=== PATIENT | male | born 1995 | race Caucasian/White ===

== ENCOUNTER 2023-06-25 21:25 | Emergency (ER) | payer BC ==
[2023-06-25] MEDS: Lactated Ringers 1,000 ML IV ONE ×2 (22:02→22:26)
[2023-06-25 22:11] LABS: BASOPHILS ABSOLUTE AUTO 0.1 K/mm3 (0.0-0.2); BASOPHILS PERCENT AUTO 0.7 % (0.0-1.0); EOSINOPHILS ABSOLUTE AUTO 0.2 K/mm3 (0.0-0.4); EOSINOPHILS PERCENT AUTO 2.8 % (0.0-6.0); HEMATOCRIT 45.1 % (42.0-52.0); HEMOGLOBIN 16.5 gm/dl (14.0-18.0); IMMATURE GRAN ABSOLUTE AUTO 0.02 K/mm3 (0.00-0.05); IMMATURE GRAN PERCENT AUTO 0.2 % (0.0-0.4); LYMPHOCYTES ABSOLUTE AUTO 3.3 K/mm3 (1.0-4.8); LYMPHOCYTES PERCENT AUTO 39.8 % (24.0-44.0); MEAN CORPUSCULAR HEMOGLOBIN 30.6 pg (28.0-32.0); MEAN CORPUSCULAR HGB CONC 36.6 g/dl (32.0-36.0); MEAN CORPUSCULAR VOLUME 83.5 fl (83.0-99.0); MEAN PLATELET VOLUME 12.5 fl (9.4-12.4); MONOCYTES ABSOLUTE AUTO 0.5 K/mm3 (0.0-0.8); MONOCYTES PERCENT AUTO 6.3 % (0.0-8.0); NEUTROPHILS ABSOLUTE AUTO 4.1 K/mm3 (1.8-7.7); NEUTROPHILS PERCENT AUTO 50.2 % (41.0-71.0); PLATELET COUNT,PLT 197 K/mm3 (150-400); WHITE BLOOD CELL COUNT,WBC 8.22 K/mm3 (3.9-11.3)
[2023-06-25 22:16] LABS: APPEARANCE,URINE CLEAR (Clear); BILIRUBIN,URINE NEGATIVE (Negative); COLOR,URINE LIGHT YELLOW (Yellow); GLUCOSE,URINE 2+ (Negative); KETONES,URINE NEGATIVE (Negative); LEUKOCYTE ESTERASE,URINE NEGATIVE (Negative); NITRITE,URINE NEGATIVE (Negative); OCCULT BLOOD,URINE NEGATIVE (Negative); PROTEIN,URINE NEGATIVE (Negative); UROBILINOGEN,URINE 0.2 (0.2-1.0)
[2023-06-25 22:22] LABS: BICARBONATE,VENOUS 23.9 meq/L (22-26); O2 SATURATION VENOUS 95.7; PCO2 VENOUS 31.2 mmHg (41-51)
[2023-06-25 22:33] LABS: A/G RATIO 0.8 (1-2); ALBUMIN 3.8 g/dl (3.4-5.0); ALKALINE PHOSPHATASE 112 U/L (46-116); ANION GAP 18.2 (5-15); BILIRUBIN TOTAL 0.7 mg/dL (0.2-1.0); BLOOD UREA NITROGEN,BUN 13 mg/dL (7-18); BUN/CREATININE RATIO 11.8 (14-18); CALCIUM 9.5 mg/dL (8.5-10.1); CARBON DIOXIDE,CO2 24 mEq/L (21-32); CHLORIDE,CL 88 mEq/L (98-107); CREATININE 1.1 mg/dL (0.7-1.3); ESTIMATED GFR 96 mL/min (>60); LIPASE 69 U/L (16-77); PROTEIN TOTAL,TP 8.3 g/dl (6.4-8.2); SODIUM,NA 126 mEq/L (136-145)
[2023-06-25 22:43] LABS: GLUCOSE RANDOM 638 mg/dL (70-99)
[2023-06-25 22:45] LABS: POTASSIUM,K 4.2 mEq/L (3.5-5.1)
[2023-06-26] MEDS: Lactated Ringers 1,000 ML IV ONE ×3 (00:12→02:56)
[2023-06-26 00:25] LABS: HEMOGLOBIN A1C 12.5 %
[2023-06-26 02:27] LABS: ANION GAP 15.5 (5-15); BUN/CREATININE RATIO 15.7 (14-18); CALCIUM 8.1 mg/dL (8.5-10.1); CREATININE 0.7 mg/dL (0.7-1.3); EST CRCL DRUG DOSING (CG) 166.57 mL/min
[2023-06-26 02:30] LABS: POTASSIUM,K 3.5 mEq/L (3.5-5.1)
[2023-06-26] MEDS: Potassium Chloride 20 MEQ Tab.ER PO ONE (02:56)
[2023-06-26 06:09] LABS: ANION GAP 14.7 (5-15); CALCIUM 7.8 mg/dL (8.5-10.1); EST CRCL DRUG DOSING (CG) 145.75 mL/min
[2023-06-26 06:11] LABS: CREATININE 0.8 mg/dL (0.7-1.3); POTASSIUM,K 3.7 mEq/L (3.5-5.1)
[2023-06-26] MEDS: Insulin Glargine,Human Rec. Analog 100 Units/ML 3 ML Pen SUBCUT ONE (06:40)
[2023-06-26] MEDS: Insulin NPH/Insulin Regular,Human 70-30 100 Units/ML 10 ML Vial SUBCUT SCH (06:44)
[2023-06-26 07:54] VITALS: BP 146/87; PULSE 71
== END 2023-06-26 07:50 | disposition home or self-care (01) ==
LOC: JD.ED 21:25
DX: E11.9 Type 2 diabetes mellitus without complications (principal)
CPT/HCPCS: 36415; 80048; 80053; 81003; 82803; 82947; 83036; 83690; 85025; 96360; 96361; 99283; A9270; J1815; J7120